=== PATIENT | female | born 1990 | race Caucasian/White ===

== ENCOUNTER 2016-08-31 15:03 | Emergency (ER) | payer OTHER, MEDICAID ==
--- NOTE | 2016-08-31 17:18 | EDM.PDOC ---
<Jesusita Bradford - Last Filed: 08/31/16 18:14> ED HPI ALTERED MENTAL STATUS - General Chief Complaint: Behavioral/Psych Stated Complaint: EVAL Time Seen by Provider: 08/31/16 15:20 Source: Reports: Patient, Other (pt was seen by her regular counselor who reccommended hospitalization on the pt. She was feeling very uincomfortable regarding Amy wanting not to go on living feeling. ) - History of Present Illness Baseline Mental Status: Reports: alert/oriented, agitated Timing/Duration: Reports: Getting worse, Other (pt has been progrssively feeling like she does not want to live She has a suicide plan but does not want to share it with anyone. ) Context: Reports: chronic/long standing, drug/ETOH abuse Associated Symptoms: Reports: depression - Related Data Allergies/ADRs: Allergies azithromycin Allergy (Verified 08/31/16 15:28) Tachycardia hydroxyzine [From Vistaril] Allergy (Verified 08/31/16 15:28) Tremors pseudoephedrine [From Sudafed] Allergy (Verified 08/31/16 15:28) Tachycardia Past Medical History Psychiatric History: Reports: Anxiety, Depression, Other (see below) Other Psychiatric History: Anorexia Social & Family History - Tobacco Use Smoking Status *Q: Current Every Day Smoker Years of Tobacco use: 11 Packs/Tins Daily: 1 - Caffeine Use Caffeine Use: Reports: Energy drinks, Soda - Recreational Drug Use Recreational Drug Use: Yes Recreational Drug Type: Reports: Methamphetamine ED ROS GENERAL - Review of Systems Review Of Systems: See Below Constitutional: Reports: no symptoms HEENT: Reports: No symptoms Respiratory: Reports: No Symptoms Cardiovascular: Reports: No symptoms Endocrine: Reports: no symptoms GI/Abdominal: Reports: No symptoms : Reports: no symptoms Musculoskeletal: Reports: no symptoms Skin: Reports: no symptoms Neurological: Reports: No Symptoms Psychiatric: Reports: Agitation, Anxiety, Depression, Suicidal ideation Immunologic: Reports: no symptoms - Physical Exam Text/Narrative:: Pt was seen by Ainsley Marcelino today who is her regular counselor. Ainsley was very uncomfortable with the pt. She kept saying that she did not want to live. Mainly because she was not able to move as planned. Her anorexia has also increased. She has lost another 6 lbs. She is drinking energy drinks and sodas. She is doing alot of vomiting if she does eat anything. She has a history of anorexia chemical dependency mainly etoh. She has a history of PTSD depression . Her depression is much worse at this time. Exam Limited By: No limitations General Appearance: anxious, other ( very impatient and depressed appearing. ) Ears: normal TMs Nose: normal inspection Throat/Mouth: Normal inspection Head Exam: atraumatic Neck: normal inspection Respiratory/Chest: no respiratory distress Cardiovascular: regular rate, rhythm (Female) Exam: Deferred Rectal (Female) Exam: Deferred Neuro Exam (Abbreviated): alert, oriented, normal cognition Back Exam: normal inspection Extremities: normal inspection Psychiatric: depressed mood, tearful, other (Pt does not want to go on living. ) Course - Vital Signs Last Recorded V/S: Last Vital Signs Temp 37.2 C 08/31/16 20:04 Pulse 75 08/31/16 20:04 Resp 16 08/31/16 20:04 BP 95/65 08/31/16 20:04 Pulse Ox 99 08/31/16 20:04 - Orders/Labs/Meds Orders: Active Orders 24 hr Category Date Time Status Nicotine [Habitrol] Med 08/31/16 20:25 Active 21 mg TRDERM DAILY Medication Orders Nicotine (Habitrol) 21 mg TRDERM DAILY ANGELIA Last Admin: 08/31/16 20:29 Dose: 21 mg Labs: Laboratory Tests 08/31/16 08/31/16 08/31/16 Range/Units 15:15 15:15 15:16 WBC 9.5 (4.5-11.0) K/uL RBC 4.96 (3.30-5.50) M/uL Hgb 14.8 (12.0-15.0) g/dL Hct 41.7 (36.0-48.0) % MCV 84 (80-98) fL MCH 30 (27-31) pg MCHC 36 (32-36) % Plt Count 237 (150-400) K/uL Neut % (Auto) 71 H (36-66) % Lymph % (Auto) 21 L (24-44) % [place] % (Auto) 6 (2-6) % Eos % (Auto) 2 (2-4) % Baso % (Auto) 1 (0-1) % Sodium 146 (140-148) mmol/L Potassium 3.8 (3.6-5.2) mmol/L Chloride 106 (100-108) mmol/L Carbon Dioxide 27 (21-32) mmol/L Anion Gap 12.9 (5.0-14.0) mmol/L BUN 13 (7-18) mg/dL Creatinine 0.9 (0.6-1.0) mg/dL Est Cr Clr Drug Dosing 69.86 mL/min Estimated GFR (MDRD) > 60 (>60) Glucose 111 H (74-106) mg/dL Calcium 8.5 (8.5-10.1) mg/dL Total Bilirubin 0.4 (0.2-1.0) mg/dL AST 17 (15-37) U/L ALT 31 (12-78) U/L Alkaline Phosphatase 59 (46-116) U/L Total Protein 8.6 H (6.4-8.2) g/dL Albumin 4.5 (3.4-5.0) g/dL Globulin 4.1 H (2.3-3.5) g/dL Albumin/Globulin Ratio 1.1 L (1.2-2.2) TSH, Ultra Sensitive (0.358-3.740) uIU/mL Urine Color Urine Appearance Urine pH (4.5-8.0) Ur Specific Belle (1.008-1.030) Urine Protein (NEGATIVE) mg/dL Urine Glucose (UA) (NEGATIVE) mg/dL Urine Ketones (NEGATIVE) mg/dL Urine Occult Blood (NEGATIVE) Urine Nitrite (NEGATIVE) Urine Bilirubin (NEGATIVE) Urine Urobilinogen (NORMAL) mg/dL Ur Leukocyte Esterase (NEGATIVE) Urine RBC (0-5) Urine WBC (0-5) Ur Epithelial Cells Amorphous Sediment Urine Bacteria Urine Mucus Urine HCG, Qual Urine Opiates Screen (NEGATIVE) Ur Oxycodone Screen (NEGATIVE) Urine Methadone Screen (NEGATIVE) Ur Propoxyphene Screen (NEGATIVE) Ur Barbiturates Screen (NEGATIVE) Ur Tricyclics Screen (NEGATIVE) Ur Phencyclidine Scrn (NEGATIVE) Ur Amphetamine Screen (NEGATIVE) U Methamphetamines Scrn (NEGATIVE) Urine MDMA Screen (NEGATIVE) U Benzodiazepines Scrn (NEGATIVE) U Cocaine Metab Screen (NEGATIVE) U Marijuana (THC) Screen (NEGATIVE) Ethyl Alcohol 3 mg/dL 04/12/17 04/12/17 04/12/17 Range/Units 15:25 15:25 18:09 WBC (4.5-11.0) K/uL RBC (3.30-5.50) M/uL Hgb (12.0-15.0) g/dL Hct (36.0-48.0) % MCV (80-98) fL MCH (27-31) pg MCHC (32-36) % Plt Count (150-400) K/uL Neut % (Auto) (36-66) % Lymph % (Auto) (24-44) % [place] % (Auto) (2-6) % Eos % (Auto) (2-4) % Baso % (Auto) (0-1) % Sodium (140-148) mmol/L Potassium (3.6-5.2) mmol/L Chloride (100-108) mmol/L Carbon Dioxide (21-32) mmol/L Anion Gap (5.0-14.0) mmol/L BUN (7-18) mg/dL Creatinine (0.6-1.0) mg/dL Est Cr Clr Drug Dosing mL/min Estimated GFR (MDRD) (>60) Glucose (74-106) mg/dL Calcium (8.5-10.1) mg/dL Total Bilirubin (0.2-1.0) mg/dL AST (15-37) U/L ALT (12-78) U/L Alkaline Phosphatase (46-116) U/L Total Protein (6.4-8.2) g/dL Albumin (3.4-5.0) g/dL Globulin (2.3-3.5) g/dL Albumin/Globulin Ratio (1.2-2.2) TSH, Ultra Sensitive 0.707 (0.358-3.740) uIU/mL Urine Color Yellow Urine Appearance Clear Urine pH 8.0 (4.5-8.0) Ur Specific Belle 1.015 (1.008-1.030) Urine Protein Negative (NEGATIVE) mg/dL Urine Glucose (UA) Normal (NEGATIVE) mg/dL Urine Ketones Negative (NEGATIVE) mg/dL Urine Occult Blood Negative (NEGATIVE) Urine Nitrite Negative (NEGATIVE) Urine Bilirubin Negative (NEGATIVE) Urine Urobilinogen Normal (NORMAL) mg/dL Ur Leukocyte Esterase Negative (NEGATIVE) Urine RBC Not seen (0-5) Urine WBC 0-5 (0-5) Ur Epithelial Cells Few Amorphous Sediment Not seen Urine Bacteria Not seen Urine Mucus Not seen Urine HCG, Qual Urine Opiates Screen Negative (NEGATIVE) Ur Oxycodone Screen Negative (NEGATIVE) Urine Methadone Screen Negative (NEGATIVE) Ur Propoxyphene Screen Negative (NEGATIVE) Ur Barbiturates Screen Negative (NEGATIVE) Ur Tricyclics Screen Negative (NEGATIVE) Ur Phencyclidine Scrn Negative (NEGATIVE) Ur Amphetamine Screen Negative (NEGATIVE) U Methamphetamines Scrn Negative (NEGATIVE) Urine MDMA Screen Negative (NEGATIVE) U Benzodiazepines Scrn Negative (NEGATIVE) U Cocaine Metab Screen Negative (NEGATIVE) U Marijuana (THC) Screen Negative (NEGATIVE) Ethyl Alcohol mg/dL 08/31/16 Range/Units 18:17 WBC (4.5-11.0) K/uL RBC (3.30-5.50) M/uL Hgb (12.0-15.0) g/dL Hct (36.0-48.0) % MCV (80-98) fL MCH (27-31) pg MCHC (32-36) % Plt Count (150-400) K/uL Neut % (Auto) (36-66) % Lymph % (Auto) (24-44) % [place] % (Auto) (2-6) % Eos % (Auto) (2-4) % Baso % (Auto) (0-1) % Sodium (140-148) mmol/L Potassium (3.6-5.2) mmol/L Chloride (100-108) mmol/L Carbon Dioxide (21-32) mmol/L Anion Gap (5.0-14.0) mmol/L BUN (7-18) mg/dL Creatinine (0.6-1.0) mg/dL Est Cr Clr Drug Dosing mL/min Estimated GFR (MDRD) (>60) Glucose (74-106) mg/dL Calcium (8.5-10.1) mg/dL Total Bilirubin (0.2-1.0) mg/dL AST (15-37) U/L ALT (12-78) U/L Alkaline Phosphatase (46-116) U/L Total Protein (6.4-8.2) g/dL Albumin (3.4-5.0) g/dL Globulin (2.3-3.5) g/dL Albumin/Globulin Ratio (1.2-2.2) TSH, Ultra Sensitive (0.358-3.740) uIU/mL Urine Color Urine Appearance Urine pH (4.5-8.0) Ur Specific Belle (1.008-1.030) Urine Protein (NEGATIVE) mg/dL Urine Glucose (UA) (NEGATIVE) mg/dL Urine Ketones (NEGATIVE) mg/dL Urine Occult Blood (NEGATIVE) Urine Nitrite (NEGATIVE) Urine Bilirubin (NEGATIVE) Urine Urobilinogen (NORMAL) mg/dL Ur Leukocyte Esterase (NEGATIVE) Urine RBC (0-5) Urine WBC (0-5) Ur Epithelial Cells Amorphous Sediment Urine Bacteria Urine Mucus Urine HCG, Qual Negative Urine Opiates Screen (NEGATIVE) Ur Oxycodone Screen (NEGATIVE) Urine Methadone Screen (NEGATIVE) Ur Propoxyphene Screen (NEGATIVE) Ur Barbiturates Screen (NEGATIVE) Ur Tricyclics Screen (NEGATIVE) Ur Phencyclidine Scrn (NEGATIVE) Ur Amphetamine Screen (NEGATIVE) U Methamphetamines Scrn (NEGATIVE) Urine MDMA Screen (NEGATIVE) U Benzodiazepines Scrn (NEGATIVE) U Cocaine Metab Screen (NEGATIVE) U Marijuana (THC) Screen (NEGATIVE) Ethyl Alcohol mg/dL Meds: Medications Generic Name Dose Route Start Last Admin Trade Name Freq PRN Reason Stop Dose Admin Nicotine 21 mg 08/31/16 20:25 08/31/16 20:29 Habitrol TRDERM 21 mg DAILY ANGELIA Administration Discontinued Medications Generic Name Dose Route Start Last Admin Trade Name Freq PRN Reason Stop Dose Admin Eszopiclone 2 mg 08/31/16 21:47 Lunesta PO 08/31/16 21:48 ONETIME ONE Fluoxetine HCl 20 mg 08/31/16 21:48 Prozac PO 08/31/16 21:49 NOW STA Gabapentin 1,200 mg 08/31/16 21:50 Neurontin PO 08/31/16 21:51 NOW STA Lurasidone HCl 60 mg 08/31/16 21:45 Latuda PO 08/31/16 21:46 NOW STA Naltrexone HCl 50 mg 08/31/16 21:48 Naltrexone PO 08/31/16 21:49 NOW STA Nicotine 21 mg 09/01/16 09:00 Habitrol TRDERM DAILY ANGELIA Propranolol HCl 10 mg 08/31/16 21:51 Inderal PO 08/31/16 21:52 NOW STA - Re-Assessments/Exams Free Text/Narrative Re-Assessment/Exam: 08/31/16 17:20 Pt has normal labs. She has a neg drug screen 08/31/16 18:14 . At this point she does not have critical labs regarding her anorexia. She needs one again to be treated for this. Departure - Departure Disposition: DC/Tfer to [facility] Hosp/Unit [facility] Clinical Impression: Suicidal ideation, Anorexia Forms: ED Department Discharge - My Orders Last 24 Hours: My Active Orders 08/31/16 20:25 Nicotine [Habitrol] 21 mg TRDERM DAILY - Assessment/Plan Last 24 Hours: My Active Orders 08/31/16 20:25 Nicotine [Habitrol] 21 mg TRDERM DAILY <Osvaldo Delaney - Last Filed: 08/31/16 21:55> - Physical Exam Exam: See Below Course - Vital Signs Text/Narrative:: We've been able to find a bed for this patient in [place], [place]. Dr. Mckinney is the physician I spoke to who accepted. I have ordered all of the patient's evening medications. We are awaiting [facility] to transfer her Departure - Departure Time of Disposition: 21:55 Condition: fair
[2016-08-31] MEDS ORDERED: Nicotine 21 MG/24 Hr Patch TRDERM SCH (20:25)
[2016-08-31] MEDS ORDERED: Lurasidone 40 MG Tab PO STA (21:45)
[2016-08-31] MEDS ORDERED: Naltrexone 50 MG Tab PO STA (21:48)
[2016-08-31] MEDS ORDERED: FLUoxetine 20 MG Cap PO STA (21:48)
[2016-08-31] MEDS ORDERED: Gabapentin 400 MG Cap PO STA (21:50)
[2016-08-31] MEDS ORDERED: Propranolol 10 MG Tab PO STA (21:51)
[2016-08-31 22:21] VITALS: BP 114/74
[2016-09-01] MEDS ORDERED: Nicotine 21 MG/24 Hr Patch TRDERM SCH (09:00)
== END 2016-08-31 23:22 ==
LOC: JP.ED 15:03
DX: R45.851 Suicidal ideations (principal); F17.210 Nicotine dependence, cigarettes, uncomplicated; Z88.1 Allergy status to other antibiotic agents; Z88.8 Allergy status to other drugs, medicaments and biological substances
CPT/HCPCS: 36415; 80053; 80305; 81001; 81025; 84443; 85025; 99285; A9270; G0480; 99284

== ENCOUNTER 2018-02-19 17:25 | Emergency (ER) | payer MEDICAID, OTHER ==
[2018-02-19 17:41] VITALS: BP 133/88
[2018-02-19] MEDS ORDERED: Ketorolac 30 MG/ML SDV IVPUSH ONE (18:07)
[2018-02-19] MEDS ORDERED: Albuterol 0.083% 2.5 MG/3 ML Neb Soln NEB ONE (18:08)
[2018-02-19] MEDS ORDERED: Sodium Chloride 0.9% 1,000 ML IV SCH (18:15)
--- NOTE | 2018-02-19 19:28 | EDM.PDOC ---
ED HPI GENERAL MEDICAL PROBLEM - General Chief Complaint: Respiratory Problem Stated Complaint: CHILLS,COUGH,WHEEZING Time Seen by Provider: 02/19/18 17:52 Source of Information: Reports: Patient History Limitations: Reports: No Limitations - History of Present Illness INITIAL COMMENTS - FREE TEXT/NARRATIVE: Cough, chest discomfort,fever and chills, this is a 27 year old female present to ER for evaluation, she reports she has been taking Augmentin for bronchitis/ sinusitis, but this is causing her severe diarrhea. she is having anxiety over this illness, worried she may have pneumonia. just hasn't been this sick before. Onset: Gradual Duration: Day(s):, Getting Worse Location: Reports: Chest, Generalized Quality: Reports: Ache, Burning Severity: Moderate Improves with: Reports: None Worsens with: Reports: None Associated Symptoms: Reports: Chest Pain, Cough, Fever/Chills, Headaches, Loss of Appetite, Nausea/Vomiting, Shortness of Breath - Related Data Allergies Allergy/AdvReac Type Severity Reaction Status Date / Time azithromycin Allergy Tachycardia Verified 02/19/18 17:40 hydroxyzine [From Vistaril] Allergy Tremors Verified 02/19/18 17:40 pseudoephedrine Allergy Tachycardia Verified 02/19/18 17:40 [From Sudafed] Home Meds: Home Meds Cetirizine HCl [Zyrtec] 10 mg PO DAILY 09/01/16 [History] Eszopiclone [Lunesta] 2 mg PO BEDTIME 09/01/16 [History] FLUoxetine HCl [Prozac] 20 mg PO BEDTIME 09/01/16 [History] Gabapentin [Neurontin] 1,200 mg PO BEDTIME 09/01/16 [History] Gabapentin [Neurontin] 300 mg PO DAILY 09/01/16 [History] Lactase [Lactaid] 3,000 unit PO TID PRN 09/01/16 [History] Omeprazole 40 mg PO DAILY 09/01/16 [History] Propranolol HCl 10 mg PO BID 09/01/16 [History] Past Medical History HEENT History: Reports: Impaired Vision Cardiovascular History: Reports: Arrhythmia Respiratory History: Reports: Asthma Gastrointestinal History: Reports: GERD, Irritable Bowel Syndrome Psychiatric History: Reports: Anxiety, Depression, Other (See Below) Other Psychiatric History: eating disorder - Past Surgical History Head Surgeries/Procedures: Reports: None HEENT Surgical History: Reports: Adenoidectomy, Tonsillectomy Cardiovascular Surgical History: Reports: None Respiratory Surgical History: Reports: None GI Surgical History: Reports: Colonoscopy, EGD Dermatological Surgical History: Reports: None Social & Family History - Tobacco Use Smoking Status *Q: Current Every Day Smoker Years of Tobacco use: 13 Packs/Tins Daily: 0.5 Used Tobacco, but Quit: No Second Hand Smoke Exposure: No - Caffeine Use Caffeine Use: Reports: Coffee, Soda - Recreational Drug Use Recreational Drug Use: No ED ROS GENERAL - Review of Systems Review Of Systems: See Below Constitutional: Reports: Fever, Chills, Malaise, Weakness, Fatigue HEENT: Reports: Sinus Problem Respiratory: Reports: Shortness of Breath, Wheezing, Pleuritic Chest Pain, Cough , Sputum Cardiovascular: Reports: No Symptoms Endocrine: Reports: No Symptoms GI/Abdominal: Reports: Diarrhea (since taking Augmentin) : Reports: No Symptoms Musculoskeletal: Reports: Muscle Pain, Muscle Stiffness Skin: Reports: No Symptoms Neurological: Reports: No Symptoms Psychiatric: Reports: No Symptoms Hematologic/Lymphatic: Reports: No Symptoms ED EXAM, GENERAL - Physical Exam Exam: See Below Exam Limited By: No Limitations General Appearance: Alert, WD/WN, Mild Distress, Thin Eye Exam: Bilateral Eye: EOMI, PERRL Ears: Normal External Exam, Normal Canal, Hearing Grossly Normal, Normal TMs Ear Exam: Bilateral Ear: Auricle Normal, Canal Normal, TM normal Nose: Nasal Tenderness (frontal and maxillary sinus pain wiht palpation), Nasal Drainage Throat/Mouth: Normal Inspection Head: Atraumatic, Normocephalic Neck: Normal Inspection, Supple, Non-Tender, Full Range of Motion Respiratory/Chest: No Respiratory Distress, Lungs Clear, Normal Breath Sounds, No Accessory Muscle Use, Chest Non-Tender Cardiovascular: Regular Rate, Rhythm, No Murmur Peripheral Pulses: 2+: Radial (L), Radial (R) GI/Abdominal: Normal Bowel Sounds, Soft, Non-Tender, No Organomegaly, No Distention, No Abnormal Bruit, No Mass Back Exam: Normal Inspection, Full Range of Motion, NT Extremities: Normal Inspection Neurological: Alert, Oriented, CN II-XII Intact, Normal Cognition, Normal Gait, Normal Reflexes, No Motor/Sensory Deficits Psychiatric: Normal Affect, Normal Mood, Tearful Skin Exam: Warm, Dry, Intact, Normal Color, No Rash Lymphatic: No Adenopathy Course - Vital Signs Last Recorded V/S: Last Vital Signs Temp 37.6 C 02/19/18 17:44 Pulse 124 H 02/19/18 17:44 Resp 16 02/19/18 17:44 BP 133/88 02/19/18 17:44 Pulse Ox 97 02/19/18 17:44 - Orders/Labs/Meds Orders: given IV fluid and medications, labs and xray do not show acute process, discussed labs and xrays Ms. Sal improved will discharge to home Labs: Laboratory Tests 02/19/18 02/19/18 Range/Units 18:21 18:21 WBC 7.8 (4.5-11.0) K/uL RBC 4.68 (3.30-5.50) M/uL Hgb 14.1 (12.0-15.0) g/dL Hct 40.0 (36.0-48.0) % MCV 86 (80-98) fL MCH 30 (27-31) pg MCHC 35 (32-36) % Plt Count 243 (150-400) K/uL Neut % (Auto) 75 H (36-66) % Lymph % (Auto) 15 L (24-44) % [place] % (Auto) 9 H (2-6) % Eos % (Auto) 1 L (2-4) % Baso % (Auto) 0 (0-1) % Sodium 135 L (140-148) mmol/L Potassium 4.6 (3.6-5.2) mmol/L Chloride 99 L (100-108) mmol/L Carbon Dioxide 29 (21-32) mmol/L Anion Gap 11.6 (5.0-14.0) mmol/L BUN 5 L D (7-18) mg/dL Creatinine 0.6 (0.6-1.0) mg/dL Est Cr Clr Drug Dosing 103.57 mL/min Estimated GFR (MDRD) > 60 (>60) Glucose 95 (74-106) mg/dL Calcium 9.0 (8.5-10.1) mg/dL Meds: Medications Discontinued Medications Generic Name Dose Route Start Last Admin Trade Name Freq PRN Reason Stop Dose Admin Albuterol 2.5 mg 02/19/18 18:08 02/19/18 18:45 Proventil Neb Soln NEB 02/19/18 18:09 2.5 mg ONETIME ONE Administration Sodium Chloride 1,000 mls @ 999 mls/hr 02/19/18 18:15 02/19/18 18:42 Normal Saline IV 999 mls/hr ASDIRECTED ANGELIA Administration Ketorolac Tromethamine 30 mg 02/19/18 18:07 02/19/18 18:43 Toradol IVPUSH 02/19/18 18:08 30 mg ONETIME ONE Administration Departure - Departure Time of Disposition: 19:45 Disposition: Home, Self-Care 01 Condition: Good Clinical Impression: Sinusitis Qualifiers: Sinusitis location: maxillary Chronicity: subacute Qualified Code(s): J01.00 - Acute maxillary sinusitis, unspecified Bronchitis, acute Qualifiers: Bronchitis organism: unspecified organism Qualified Code(s): J20.9 - Acute bronchitis, unspecified - Discharge Information *PRESCRIPTION DRUG MONITORING PROGRAM REVIEWED*: Not Applicable *COPY OF PRESCRIPTION DRUG MONITORING REPORT IN PATIENT NOLBERTO: Not Applicable Instructions: Sinusitis, Adult, [id number], Acute Bronchitis, Adult Referrals: PCP,None [Primary Care Provider] - Forms: ED Department Discharge, ED Return to Work/School Form Care Plan Goals: acute bronchitis and sinusitis -stop Augmentin -start Keflex take three times a day for 10 days -Robitussin AC 10ml every 4 to 6 hours as needed for painful cough -drink plenty of water and try to eat 3 meals a day -rest, advised no work for 3 days or until fever free x 24 hours Follow up in Primary Care for recheck next week return to ER or [facility] if has increased pain, fever, chills, nausea, vomiting, diarrhea, rash or not improved - Problem List & Annotations (1) Bronchitis, acute SNOMED Code(s): 31786449 Code(s): J20.9 - ACUTE BRONCHITIS, UNSPECIFIED Status: Acute Priority: High Qualifiers: Bronchitis organism: unspecified organism Qualified Code(s): J20.9 - Acute bronchitis, unspecified (2) Sinusitis SNOMED Code(s): 68527338 Code(s): J32.9 - CHRONIC SINUSITIS, UNSPECIFIED Status: Acute Priority: High Qualifiers: Sinusitis location: maxillary Chronicity: subacute Qualified Code(s): J01.00 - Acute maxillary sinusitis, unspecified - Problem List Review Problem List Initiated/Reviewed/Updated: Yes - Assessment/Plan Plan: acute bronchitis and sinusitis -stop Augmentin -start Keflex take three times a day for 10 days -Robitussin AC 10ml every 4 to 6 hours as needed for painful cough -drink plenty of water and try to eat 3 meals a day -rest, advised no work for 3 days or until fever free x 24 hours Follow up in Primary Care for recheck next week return to ER or [facility] if has increased pain, fever, chills, nausea, vomiting, diarrhea, rash or not improved
--- NOTE | 2018-02-20 08:31 | CR ---
CHEST: 2 view CLINICAL HISTORY:Cough COMPARISON:None FINDINGS: Heart size and pulmonary vascularity are normal. There is patchy left lower lobe density c onsistent with pneumonia.. Impression: Left lower lobe pneumonia
== END 2018-02-19 19:45 | disposition home or self-care (01) ==
LOC: JP.ED 17:25
DX: J20.9 Acute bronchitis, unspecified (principal); J01.00 Acute maxillary sinusitis, unspecified; F17.210 Nicotine dependence, cigarettes, uncomplicated; F41.9 Anxiety disorder, unspecified; F32.9 Major depressive disorder, single episode, unspecified; Z88.1 Allergy status to other antibiotic agents; Z88.8 Allergy status to other drugs, medicaments and biological substances; Z79.899 Other long term (current) drug therapy; J45.909 Unspecified asthma, uncomplicated
CPT/HCPCS: 36415; 71046; 71046-26; 80048; 85025; 94640; 96360; 99284-25; J1885; J7030